=== PATIENT | female | born 1975 | race Caucasian/White ===

== ENCOUNTER → 2017-01-23 | Outpatient (CLI) | payer BC ==
[2017-01-23 07:14] LABS: HEMATOCRIT 42.5 % (37.0-47.0); HEMOGLOBIN 14.5 g/dL (12.0-16.0); MEAN CORPUSCULAR HEMOGLOBIN 34.5 PG (27-31); MEAN CORPUSCULAR HGB CONC 34.1 g/dL (33-37); MEAN CORPUSCULAR VOLUME 101.2 FL (81-99); MEAN PLATELET VOLUME 8.9 FL (7.4-12.2); RED BLOOD COUNT 4.2 10^6/uL (4.20-5.40)
[2017-01-23 07:22] LABS: BLOOD UREA NITROGEN 14 mg/dL (7-22); BUN/CREATININE RATIO 23.33 (6-20); CALCIUM 9.4 mg/dL (8.7-10.7); CHOL/HDL RATIO 2.54 RATIO (0-4.0); EST GLOMERULAR FILTRATION > 60 (>60 ml/min/1.73m(2)); HDL CHOLESTEROL 70 mg/dL (40-150); SERUM ALBUMIN 4.1 g/dL (3.5-4.8); SERUM CHOLESTEROL 178 mg/dL (120-200)
[2017-01-23 07:41] LABS: FREE T4 (FREE THYROXINE) 0.86 ng/dL (0.93-1.71)
== END ==
LOC: LAB 06:49
PROVIDERS: ATTEND Family Medicine
DX: Z00.01 Encounter for general adult medical examination with abnormal findings (principal); E03.9 Hypothyroidism, unspecified; R61 Generalized hyperhidrosis; R07.9 Chest pain, unspecified
CPT/HCPCS: 36415; 80053; 80061; 82670; 83001; 83002; 84439; 84443; 85027